=== PATIENT | male | born 1990 | race Two or more races ===

== ENCOUNTER 2016-06-15 13:33 | Emergency (ER) | payer BC ==
[~2016-06-15] VITALS: Ht 177.8 cm; Wt 90.7 kg
[2016-06-15 13:37] VITALS: BP 151/99
[2016-06-15] MEDS ORDERED: cefTRIAXone 1GM/50ML D5W 50 ML IV ONE ×2 (15:30)
[2016-06-15] MEDS ORDERED: KETOROLAC TROMETH 30 MG/ML 1ML VIAL IV ONE (15:30)
[2016-06-15] MEDS ORDERED: methylPREDNISolone SOD SUCC 125 MG/2 ML VL IV ONE (15:30)
== END 2016-06-15 16:43 | disposition home or self-care (01) ==
LOC: ER 13:36
DX: J03.91 Acute recurrent tonsillitis, unspecified (principal)
CPT/HCPCS: 96365; 96375; 99284; J0696; J1885; J2930